=== PATIENT | female | born 1995 | race Caucasian/White ===

== ENCOUNTER 2022-05-21 13:24 | Emergency (ER) | payer OTHER, SELFPAY ==
--- NOTE | 2022-05-21 13:19 | ECG_ITS ---
APPROVED REPORT Exam: Resting ECG HR:106 bpm ECG Measurements Heart Rate 106 AXES VT 157 P 75 QRSd 93 QRS 87 QT 335 T -9 QTc 397 Conclusion SINUS TACHYCARDIA O/w normal ecg ABNORMAL ECG UNCONFIRMED REPORT Electronically signed by : Hermes Chaudhary MD 05/22/2022 20:18:35
[2022-05-21 13:25] VITALS: BP 105/81; PULSE 109; RESP 18; TEMP 36.6; O2SAT 95; BMI 20.1
--- NOTE | 2022-05-21 13:39 | CT_ITS ---
FINAL REPORT TECHNIQUE: Thin section axial CT images were obtained from the lung apices to the upper abdomen. IV contrast was administered. MIP 3-D reformats were obtained. This study was performed with techniques to keep radiation doses as low as reasonably achievable (ALARA). Individualized dose reduction techniques using automated exposure control or adjustment of mA and/or kV according to the patient's size were employed. CLINICAL HISTORY: chest pain, informed to have PE study FINDINGS: The heart size is normal. There is mild mediastinal and hilar adenopathy that is likely reactive. There is no filling defect to suggest PE. There is no aortic dissection. There is no pericardial effusion. There is medial right upper lobe consolidation consistent with pneumonia. A calcified granuloma is seen in the right upper lobe. No pleural effusion. Limited images of the upper abdomen demonstrate mild nonspecific biliary duct dilatation of uncertain etiology. IMPRESSION: No pulmonary embolism or aortic dissection. Right upper lobe pneumonia. Mild adenopathy is likely reactive. Mild nonspecific biliary duct dilatation of uncertain etiology. Reviewed, Interpreted and Dictated by Thang Pak III, MD Transcribed by Edgar Mckeon Authenticated and [facility]
--- NOTE | 2022-05-21 13:41 | HMH.EDGENADL ---
Discharge Plan Disposition Patient Disposition: Home, Self-Care Condition: Good Prescriptions Prescriptions: New benzonatate 100 mg capsule 100 mg PO BID Qty: 30 0RF doxycycline hyclate 100 mg capsule 100 mg PO BID Qty: 20 0RF ketorolac 10 mg tablet 10 mg PO Q8H 4 Days Qty: 12 0RF Referrals Follow up/Referrals: Provider,Referral, MD [Referring] - See instructions Activity Restrictions/Add. Instructions Additional Instructions/Restrictions: Please follow-up with your primary care physician within the next 1 to 2 days. Please take the antibiotic and Tessalon Perles to help with your symptoms. Please drink plenty of water. Clinical Impressions Clinical Impression: Pneumonia Instructions Patient Instructions: DI for Pneumonia -- Adult Print Language Print Language: Vietnamese Discharge ED Provider: Liz Diaz Adult HPI General Chief complaint: Chest Pain Stated complaint: chest pain Time Seen by Provider: 05/21/22 13:30 Mode of Arrival: Ambulatory Source of Information: Patient Limitations: No Limitations History of Present Illness HPI narrative: Miss peralta is a 26 yo female w/ PMH for facial cancer, surgically removed per the patient presenting to [facility] ED for pe rule out. Patent reports she was evaluated at another facility yesterday for chest pain in the setting of cough and congestion since 05/08. Patient was found to have + dimer (.52), patient was given an order for a ct chest however due to inability to gain IV access patient unable to have ct scan. Patient was given outpatient order for scan but was unable to retrieve as the imaging faciilty informed her they did not have her ct order in system. Patient denies LE swelling/pain. No hx of blood clots. No recent trauam chest. Symptoms not exacerbated with food intake. MD complaint: cough and congestion, chest pain Related Data Previous Rx's Medication Instructions Recorded benzonatate 100 mg capsule 100 mg PO BID #30 caps 05/21/22 doxycycline hyclate 100 mg capsule 100 mg PO BID #20 caps 05/21/22 ketorolac 10 mg tablet 10 mg PO Q8H 4 days #12 tabs 05/21/22 Allergies Allergy/AdvReac Type Severity Reaction Status Date / Time SULFA (SULFONAMIDE) Allergy Intermediate HIVES, Uncoded 06/02/17 14:58 ITCHING, TURNS [facility] Disclaimer: The information contained in this section may have been updated after the patient was seen, as this information can be updated by other users. Social History Smoking Status: Unknown if ever smoked alcohol intake: never current occupational status: employed Travel in the last 8 weeks: None ROS Obtained: Yes All systems reviewed & no additional complaints except as documented Physical Exam General General appearance: alert and in no apparent distress Head Head exam: atraumatic and normal inspection Eye Eye exam: Present normal appearance and EOMI ENT ENT exam: Present normal exam and mucous membranes moist Neck Neck exam: Present normal inspection and full ROM Chest Chest inspection: Present normal inspection and symmetric chest wall rise Respiratory Respiratory exam: Present normal lung sounds bilaterally Cardiovascular Cardiovascular exam: Present regular rate and tachycardia Abdominal Exam Abdominal exam: Present soft Extremities Exam Extremities exam: Present normal inspection and full ROM Back Exam Back exam: Present normal inspection and full ROM Neurological Exam Neurological exam: Present alert and oriented X3 Skin Skin exam: Present warm and normal color Medical Decision Making Medical Records Medical records reviewed: Yes I reviewed the patient's medical records. [place] Inquiry Pt receiving controlled substance: No Vital Signs: 05/21/22 13:25 05/21/22 14:01 05/21/22 14:31 Temperature 97.8 F Temperature Source Oral Pulse Rate 107 H 96 H Pulse Rate [Left Radial] 109 H Respiratory
[2022-05-21 13:46] LABS: Chloride 98 mmol/L (98-107); Sodium 136 mmol/L (136-145)
[2022-05-21 13:49] LABS: Alanine Aminotransferase 11 U/L (12-78); Albumin Level 3.8 g/dl (3.5-5.0); Albumin/Globulin Ratio 1.3 (1.1-1.8); Alkaline Phosphatase 101 U/L (38-126); Aspartate Amino Transferase 24 U/L (14-36); Bilirubin,Total 0.3 mg/dl (0.2-1.3); Blood Urea Nitrogen 12 mg/dl (7-17); Calcium 8.9 mg/dl (8.4-10.2); Carbon Dioxide 30 mmol/L (22.0-30.0); Estimated Glomerular Filt Rate 121 ml/min (>60); GFR (African American) 146 ML/MIN (>60); Glucose 81 mg/dl (74-100); Total Protein,Serum 6.8 g/dl (6.3-8.2)
[2022-05-21 13:55] LABS: Anion Gap 10.4 mEq/L (5-15)
[2022-05-21 13:56] LABS: Potassium 2.4 mmoL/L (3.5-5.1)
[2022-05-21 14:01] VITALS: BP 101/78; PULSE 107; O2SAT 99
[2022-05-21 14:11] LABS: Basophils # 0.1 K/mm3 (0-0.2); Basophils % 0.7 % (0.1-2.0); Eosinophils # 0.1 K/mm3 (0.0-0.4); Eosinophils % 1.2 % (0.1-12.0); Hematocrit 37.2 % (37.0-47.0); Hemoglobin 12.6 g/dL (12.2-16.2); Lymphocytes # 1.9 K/mm3 (0.7-4.5); Lymphocytes % 26.6 % (10-50); Mean Corpuscular HGB Conc 33.7 g/dL (31.8-35.4); Mean Corpuscular Hemoglobin 30.1 pg (27.0-31.2); Mean Corpuscular Volume 89.4 fl (81-99); Mean Platelet Volume 8.9 fl (7.4-10.4); Monocytes # 0.5 K/mm3 (0.1-1.0); Monocytes % 6.5 % (1.7-9.3); Neutrophils # 4.6 K/mm3 (1.8-7.8); Platelet Count 222 K/mm3 (142-424); Red Blood Count 4.17 M/mm3 (4.20-5.40); Red Cell Distribution Width 13.7 % (11.5-17.5); White Blood Count 7.1 K/mm3 (4.8-10.8)
[2022-05-21 14:14] LABS: Troponin I < 0.01 ng/ml (0.00-0.034)
[2022-05-21 14:31] VITALS: BP 113/74; PULSE 96; O2SAT 99
--- NOTE | 2022-05-21 14:39 | PC.NURSE ---
called radiology to check on pt status for going for her ct scan.
--- NOTE | 2022-05-21 14:43 | PC.NURSE ---
radiology is waiting on pt test before ct
--- NOTE | 2022-05-21 14:44 | HMH.ITSTN ---
called ER to check on status of preg test and IV
[2022-05-21 15:00] VITALS: BP 117/76; PULSE 104; O2SAT 97
--- NOTE | 2022-05-21 15:20 | PC.NURSE ---
contacted lab for updated time on
--- NOTE | 2022-05-21 15:21 | PC.NURSE ---
MD aware of pt muscle spasms. PT got tylenol and motrin with no relief, md orderd toradol and states if that does not work she can have one dose of morphine. Will continue to monitor
[2022-05-21 15:23] LABS: HCG Qualitative, Serum Negative (Negative)
--- NOTE | 2022-05-21 15:33 | PC.NURSE ---
pt to ct
[2022-05-21 16:55] VITALS: BP 122/80; PULSE 104; RESP 18; TEMP 36.6; O2SAT 97
== END 2022-05-21 16:58 | disposition home or self-care (01) ==
PROVIDERS: Emergency Provider Student in an Organized Health Care Education/Training Program; PCP Family Medicine
DX: J18.9 Pneumonia, unspecified organism (principal)
CPT/HCPCS: 71275; 80053; 84484; 84703; 85025; 93005; 96374; 99284; Q9967

== ENCOUNTER 2022-11-08 17:24 | Emergency (ER) | payer OTHER, SELFPAY ==
[2022-11-08 17:25] VITALS: BP 108/74; PULSE 138; RESP 19; TEMP 37.1; O2SAT 97; BMI 20.1
--- NOTE | 2022-11-08 17:27 | HMH.EDGENADL ---
Discharge Plan Disposition Patient Disposition: Home, Self-Care Prescriptions Prescriptions: New cefdinir 300 mg capsule 300 mg PO BID 10 Days Qty: 20 0RF cyclobenzaprine 5 mg tablet 5 mg PO TID PRN (Reason: muscle spasm) 5 Days Qty: 15 0RF ibuprofen 600 mg tablet 600 mg PO Q8H PRN (Reason: pain) 7 Days Qty: 20 0RF No Action mirtazapine 30 mg tablet 30 mg PO HS Label Comments: TAKE 1 TABLET BY MOUTH EVERY NIGHT lamotrigine 100 mg tablet 100 mg PO DAILY Label Comments: TAKE 1 TABLET BY MOUTH DAILY methylphenidate HCl [Concerta] 36 mg tablet extended release 24hr 36 mg PO DAILY Label Comments: TAKE 1 TABLET BY MOUTH EVERY MORNING Azstarys 26.1 mg- 5.2 mg capsule 1 cap PO DAILY Label Comments: TAKE 1 CAPSULE BY MOUTH DAILY Referrals Follow up/Referrals: Génesis Ennis MD [Primary Care Provider] - See instructions Activity Restrictions/Add. Instructions Additional Instructions/Restrictions: Your evaluation for your back pain today was overall nonspecific. Your urinalysis did potentially show urinary tract infection with your back pain we will treat for pyelonephritis however your urine that you provided was contaminated and may not have been an adequate specimen. I suspect that your urine culture results will not yield any specific results. Nonetheless I will treat you for pyelonephritis with antibiotics. Please return with any fevers that are not being treated adequately at home with Tylenol or ibuprofen and or other concerns. Additionally you do have significant back spasms clinically which may be secondary to the prolonged mopping that you had yesterday and will be treated with Flexeril and ibuprofen. Overall your symptoms are nonspecific but no emergent medical condition was identified tonight please return with any worsening or persistent symptoms. Clinical Impressions Clinical Impression: Back pain, Pyelonephritis, Back muscle spasm Instructions Patient Instructions: DI for Urinary Tract Infection (UTI), DI for Urinary Tract Infection in Children Discharge ED Provider: Jazmine Thurston General Adult HPI General Chief complaint: Urogenital-Female Stated complaint: back pain, diff to urinate Time Seen by Provider: 11/08/22 17:27 History of Present Illness HPI narrative: Patient is a 27-year-old female presenting with back pain. This has been going on since yesterday has been constant but intermittently getting worse and better. She states she has a history of kidney stones but in the past has had nausea and vomiting with her kidney stones is not having any nausea vomiting at this point. She does state that yesterday she spent over an hour mopping doing spring cleaning and that her back was getting tight this may be of been the inciting factor today. Her symptoms are in the midline off the paraspinal aspects of her upper and lower back but primarily on the left she states. She had no hematuria no fevers or chills no dysuria frequency or urgency. She is not take any medicines prior to arrival today. No history of any injection drug use. She states that she has had no urinary or bowel incontinence no saddle anesthesia no lower extremity weakness or paralysis no history of injection drug use fever or cancer. Related Data Home Medications Medication Instructions Recorded Confirmed lamotrigine 100 mg tablet 100 mg PO DAILY Seizure 11/08/22 11/08/22 methylphenidate HCl 36 mg 36 mg PO DAILY ADHD 11/08/22 11/08/22 tablet,extended release 24 hr (Concerta) mirtazapine 30 mg tablet 30 mg PO HS Depression 11/08/22 11/08/22 serdexmethylphenidate 26.1 1 cap PO DAILY ADHD 11/08/22 11/08/22 mg-dexmethylphenidate 5.2 mg capsule (Azstarys) Previous Rx's Medication Instructions Recorded cefdinir 300 mg capsule 300 mg PO BID 10 days #20 caps 11/08/22 cyclobenzaprine 5 mg tablet 5 mg PO TID PRN muscle spasm 5 11/08/22 days #15 tabs ibuprof
--- NOTE | 2022-11-08 17:38 | CT_ITS ---
PROCEDURE INFORMATION: Exam: CT Abdomen And Pelvis Without Contrast Exam date and time: 11/08/2022 6:43 PM Age: 27 years old Clinical indication: Abdominal pain; Flank; Left; Additional info: Left flank pain TECHNIQUE: Imaging protocol: Computed tomography of the abdomen and pelvis without contrast. Total images: 270 Radiation optimization: All CT scans at this facility use at least one of these dose optimization techniques: automated exposure control; mA and/or kV adjustment per patient size (includes targeted exams where dose is matched to clinical indication); or iterative reconstruction. REPORTING DATA: Count of CT and Cardiac NM exams in prior 12 months: This patient has received [address] and 0 known cardiac nuclear medicine studies in the 12 months prior to the current study. COMPARISON: CT ANGIO CHEST PE PROTOCOL 05/21/2022 3:40 PM FINDINGS: Lungs: Lung bases are clear. Heart: Normal heart size. Liver: Normal. No mass. Gallbladder and bile ducts: Heterogeneous gallbladder content likely sludge or noncalcified gallstones. No acute cholecystitis. Stable mild extrahepatic bile ductal dilatation, unchanged from May 21, 2022. Pancreas: Normal. No ductal dilation. Spleen: Normal. No splenomegaly. Adrenal glands: Normal. No mass. Kidneys and ureters: 2-3 mm nonobstructing right intrarenal calculus. Unremarkable left kidney. No hydronephrosis or perinephric fluid. Stomach and bowel: Unremarkable stomach and duodenum. No ileus or bowel obstruction. Small bowel is within normal limits. Moderate colonic stool burden. Mostly collapsed rectosigmoid colon. No acute colonic inflammatory process. Appendix: The appendix is not discretely visualized. No secondary signs of appendicitis. Intraperitoneal space: No ascites. No free air. Vasculature: Abdominal aorta is normal in caliber. Pelvic phleboliths. Lymph nodes: Unremarkable. No enlarged lymph nodes. Urinary bladder: Partially collapsed bladder. Reproductive: Uterus and ovaries are physiologic. No adnexal mass or free pelvic fluid. Bones/joints: No acute osseous abnormality. Thoracolumbar scoliosis. No concerning bone lesions. Soft tissues: Very tiny fat containing umbilical hernia. IMPRESSION: 1. No acute intra-abdominal or pelvic process. Specifically, study does not provide etiology for left flank pain. 2. 2-3 mm nonobstructing right intrarenal calculus. 3. Suspect gallbladder sludge versus noncalcified stones. No acute cholecystitis. 4. Stable mild dilatation of the extrahepatic duct, unchanged from May 21, 2022. 5. Moderate colonic stool burden/constipation.
[2022-11-08 17:39] VITALS: BP 108/74; PULSE 138; O2SAT 96
[2022-11-08 17:59] LABS: Basophils % 0.4 % (0.1-2.0); Eosinophils # 0.1 K/mm3 (0.0-0.4); Eosinophils % 1.9 % (0.1-12.0); Hematocrit 42.7 % (37.0-47.0); Hemoglobin 13.9 g/dL (12.2-16.2); Lymphocytes # 2.5 K/mm3 (0.7-4.5); Lymphocytes % 47.1 % (10-50); Mean Corpuscular HGB Conc 32.7 g/dL (31.8-35.4); Mean Corpuscular Hemoglobin 29.3 pg (27.0-31.2); Mean Corpuscular Volume 89.6 fl (81-99); Mean Platelet Volume 8.6 fl (7.4-10.4); Monocytes # 0.5 K/mm3 (0.1-1.0); Monocytes % 9.8 % (1.7-9.3); Neutrophils # 2.1 K/mm3 (1.8-7.8); Neutrophils % 40.7 % (37.0-80.0); Platelet Count 305 K/mm3 (142-424); Red Blood Count 4.76 M/mm3 (4.20-5.40); Red Cell Distribution Width 15.1 % (11.5-17.5); White Blood Count 5.3 K/mm3 (4.8-10.8)
[2022-11-08 18:00] VITALS: BP 99/78; PULSE 131; O2SAT 96
[2022-11-08 18:00] LABS: Chloride 100 mmol/L (98-107)
[2022-11-08 18:04] LABS: Alanine Aminotransferase 23 U/L (12-78); Albumin/Globulin Ratio 1.3 (1.1-1.8); Alkaline Phosphatase 78 U/L (38-126); Aspartate Amino Transferase 50 U/L (14-36); Bilirubin,Total 0.2 mg/dl (0.2-1.3); Blood Urea Nitrogen 11 mg/dl (7-17); Carbon Dioxide 28 mmol/L (22.0-30.0); Creatinine Clearance Estimated 108 mL/min (50-200); Estimated Glomerular Filt Rate 100 ml/min (>60); GFR (African American) 121 ML/MIN (>60); Globulin 3.1 g/dL (1.3-3.2); Glucose 105 mg/dl (74-100); Total Protein,Serum 7.1 g/dl (6.3-8.2)
--- NOTE | 2022-11-08 18:13 | PC.NURSE ---
Patient okay with IV fluids, but is refusing all other medications at this time. Attending notified.
[2022-11-08 18:14] LABS: Sodium 138 mmol/L (136-145)
--- NOTE | 2022-11-08 18:15 | PC.NURSE ---
aware of potassium
[2022-11-08 18:26] LABS: Microscopic, Urine URINE MICROSCOPIC (MICROSCOPIC)
[2022-11-08 18:34] LABS: Appearance,Urine SL CLOUDY (Clear); Blood, Urine TRACE-I (Negative); Color,Urine YELLOW (Yellow); Glucose,Urine (UA) Negative (Negative); Ketones,Urine 1+ (Negative); Leukocyte Esterase,Urine 1+ (Negative); Nitrate,Urine Negative (Negative); Protein,Urine TRACE (Negative); Urobilinogen,Urine 0.2 EU/dl (0.2)
[2022-11-08 18:37] LABS: Urine Pregnancy, HCG Qual. Negative (Negative)
[2022-11-08 18:40] LABS: Bilirubin,Urine 1+ (Negative)
--- NOTE | 2022-11-08 18:40 | PC.NURSE ---
Leila with [facility] called back. Patient is clear to be discharged back to intermediate and they will complete their intake for patient there. Leila will be calling the intermediate.
[2022-11-08 18:55] LABS: RBC,Urine Occasional #/hpf (0-3)
[2022-11-08 18:56] LABS: Bacteria,Urine 1+ /lpf; Calcium Oxalate Crystals,Urine Trace /lpf
--- NOTE | 2022-11-08 19:04 | PC.NURSE ---
Patient had agreed to taking medications. Medicated per MAR
[2022-11-08 19:46] VITALS: BP 95/70; PULSE 110; O2SAT 96
--- NOTE | 2022-11-08 19:50 | PC.NURSE ---
Rounded on pt. Pt complains of IV burning L. DAVID Chaudhari notified.
[2022-11-08 20:01] VITALS: BP 98/75; PULSE 105; RESP 18; TEMP 36.6; O2SAT 99
== END 2022-11-08 20:05 | disposition home or self-care (01) ==
PROVIDERS: Emergency Provider Student in an Organized Health Care Education/Training Program; PCP Family Medicine
DX: N12 Tubulo-interstitial nephritis, not specified as acute or chronic (principal); M62.830 Muscle spasm of back; F17.200 Nicotine dependence, unspecified, uncomplicated
CPT/HCPCS: 74176; 80053; 81001; 81025; 85025; 87086; 96361; 96374; 96375; 99284; 99285; J2405; J3475

== ENCOUNTER 2023-09-14 16:36 | Outpatient (CLI) | payer OTHER, SELFPAY ==
--- NOTE | 2023-09-14 16:37 | MR_ITS ---
FINAL REPORT CLINICAL HISTORY: jaw pain. STATES BUMPS ALONG MANDIBLE. FINDINGS: Multiplanar MR imaging of the neck was performed without and with contrast. There is no acute bony abnormality. The patient is edentulous. Dedicated TMJ was not performed but TMJ is unremarkable. There are multiple enlarged bilateral internal jugular nodes. Largest on the right at C2-3 level measures 16 mm. Largest on the left at C3 measures 19 mm. Findings are nonspecific, may be reactive or possibly neoplastic. The nasopharynx, oropharynx, hypopharynx, and larynx are unremarkable. IMPRESSION: Multiple enlarged bilateral internal jugular nodes, may be reactive or neoplastic. Reviewed, Interpreted and Dictated by Thang Pak III, MD Transcribed by Emi Figueroa Authenticated and [facility]
[2023-09-14] MEDS: SODIUM CHLORIDE 0.9% 10ML SYR (RAD ONLY) 10 ML IV (17:20)
[2023-09-14] MEDS: GADOTERIDOL INJ 17ML SYRINGE 10 ML IV (17:20)
== END 2023-09-14 23:59 ==
LOC: RAD 16:37
PROVIDERS: PCP Internal Medicine; Visit Provider Internal Medicine
DX: R51.9 Headache, unspecified (principal); G50.1 Atypical facial pain
CPT/HCPCS: 70543; A9576

== ENCOUNTER 2023-09-17 14:57 | Outpatient (CLI) | payer OTHER, SELFPAY ==
[2023-09-17 15:28] LABS: Basophils % 0.9 % (0.1-2.0); Eosinophils % 0.3 % (0.1-12.0); Hematocrit 43.4 % (37.0-47.0); Hemoglobin 13.8 g/dL (12.2-16.2); Lymphocytes % 25.5 % (10-50); Mean Corpuscular HGB Conc 31.8 g/dL (31.8-35.4); Mean Corpuscular Hemoglobin 30.5 pg (27.0-31.2); Mean Corpuscular Volume 96.1 fl (81-99); Mean Platelet Volume 9.4 fl (7.4-10.4); Monocytes # 0.2 K/mm3 (0.1-1.0); Monocytes % 5.1 % (1.7-9.3); Neutrophils # 2.6 K/mm3 (1.8-7.8); Neutrophils % 68.2 % (37.0-80.0); Platelet Count 165 K/mm3 (142-424); Red Blood Count 4.52 M/mm3 (4.20-5.40); Red Cell Distribution Width 14.1 % (11.5-17.5); White Blood Count 3.8 K/mm3 (4.8-10.8)
[2023-09-17 16:00] LABS: Alanine Aminotransferase 14 U/L (12-78); Albumin Level 3.6 g/dl (3.5-5.0); Albumin/Globulin Ratio 1.6 (1.1-1.8); Alkaline Phosphatase 57 U/L (38-126); Anion Gap 7.6 mEq/L (5-15); Aspartate Amino Transferase 26 U/L (14-36); Bilirubin,Total 0.3 mg/dl (0.2-1.3); Blood Urea Nitrogen 10 mg/dl (7-17); Calcium 9.2 mg/dl (8.4-10.2); Carbon Dioxide 28 mmol/L (22.0-30.0); Chloride 108 mmol/L (98-107); Estimated Glomerular Filt Rate 85 ml/min (>60); GFR (African American) 103 ML/MIN (>60); Globulin 2.3 g/dL (1.3-3.2); Glucose 94 mg/dl (74-100); Lactate Dehydrogenase 171 U/L (313-618); Potassium 3.6 mmoL/L (3.5-5.1); Sodium 140 mmol/L (136-145); Total Protein,Serum 5.9 g/dl (6.3-8.2)
== END 2023-09-17 23:59 ==
LOC: LAB 14:58
PROVIDERS: PCP Internal Medicine; Visit Provider Internal Medicine Medical Oncology
DX: R59.9 Enlarged lymph nodes, unspecified (principal)
CPT/HCPCS: 36415; 80053; 83615; 84550; 85025

== ENCOUNTER 2023-12-01 14:58 | Emergency (ER) | payer OTHER, SELFPAY ==
--- NOTE | 2023-12-01 15:03 | ED_ITS ---
<Statement entered by Jazmine Thurston MD - 12/01/23 22:51> I was consulted by the JEZ, and we discussed the complexity of the problems being addressed. I approved the treatment and management plan for this patient's care in the emergency department, thus performing a substantive portion of the medical decision making. Jazmine Thurston MD, RUSTY, FACEP Discharge Plan Disposition Patient Disposition: Home, Self-Care Condition: Good Prescriptions Prescriptions: New cefdinir 300 mg capsule 300 mg PO BID 10 Days Qty: 20 0RF No Action baclofen 5 mg tablet 5 mg PO TID PRN (Reason: muscle spasm) 30 Days Qty: 90 3RF lamotrigine 200 mg tablet PO Patient Comments: TAKE 1 TABLET BY MOUTH DAILY amoxicillin-pot clavulanate [Augmentin] 500-125 mg tablet 1 tab PO BID 14 Days Qty: 28 0RF methylphenidate HCl 40 mg cap,ER sprinkle,biphasic 40-60 PO methadone 5 mg tablet 7.5 mg PO TID 30 Days Qty: 135 0RF diazepam 5 mg tablet 5 mg PO BID PRN (Reason: anxiety) Qty: 60 1RF prazosin 2 mg capsule 4 mg PO HS Qty: 60 2RF eszopiclone 2 mg tablet 2 mg PO Patient Comments: TAKE 1 TABLET EVERY NIGHT AT BEDTIME IMMEDIATELY BEFORE BEDTIME temazepam 15 mg capsule 15 mg PO HS Qty: 30 2RF ondansetron 8 mg tablet,disintegrating 8 mg PO Q8H PRN (Reason: nausea and vomiting) Qty: 60 2RF oxycodone 5 mg tablet 5 mg PO Q6H PRN (Reason: oral pain) 30 Days Qty: 60 0RF Referrals Follow up/Referrals: Pio Doan DO [Primary Care Provider] - See instructions Activity Restrictions/Add. Instructions Additional Instructions/Restrictions: Please take all antibiotics. Follow-up with your PCP for recheck. Return to ER for any worsening signs or symptoms. You may take Tylenol alternating with Motrin every 4 hours as needed for constitutional symptoms like fever and pain. Clinical Impressions Clinical Impression: Pyelonephritis Instructions Patient Instructions: DI for Kidney Infection, DI for Constipation Discharge ED Provider: Jazmine Thurston General Adult HPI General Chief complaint: PAIN Stated complaint: Right side stabbing pain Time Seen by Provider: 12/01/23 15:03 History of Present Illness HPI narrative: Patient presents for evaluation of right-sided flank and abdominal pain. Patient states that she began having right flank pain radiating down her right abdomen to her right groin yesterday. She called her PCP however he was not in the office so patient waited it out. However she has not improved and called her PCP today and he sent her to the emergency department for evaluation. Patient states that she has a dysuria and burning when she pees but also has a history of vaginal infections as well as kidney stones. She denies fever chills hemoptysis hematochezia melena nausea vomiting diarrhea. Related Data Home Medications Medication Instructions Recorded Confirmed eszopiclone 2 mg tablet 2 mg PO 07/16/23 11/18/23 lamotrigine 200 mg tablet mg PO 10/21/23 11/18/23 methylphenidate HCl 40 mg mg PO 11/18/23 11/18/23 capsule,extended release (40-60) sprinkle Previous Rx's Medication Instructions Recorded baclofen 5 mg tablet 5 mg PO TID PRN muscle spasm 30 06/17/23 days #90 tabs ondansetron 8 mg disintegrating 8 mg PO Q8H PRN nausea and 09/23/23 tablet vomiting #60 tabs temazepam 15 mg capsule 15 mg PO HS #30 caps 09/23/23 amoxicillin 500 mg-potassium 1 tab PO BID 14 days #28 tabs 10/22/23 clavulanate 125 mg tablet (Augmentin) diazepam 5 mg tablet 5 mg PO BID PRN anxiety #60 tabs 11/18/23 methadone 5 mg tablet 7.5 mg (1.5 x 5 mg) PO TID pain 30 11/18/23 days #135 tabs prazosin 2 mg capsule 4 mg (2 x 2 mg) PO HS #60 caps 11/19/23 oxycodone 5 mg tablet 5 mg PO Q6H PRN oral pain 30 days 11/30/23 #60 tabs cefdinir 300 mg capsule 300 mg PO BID 10 days #20 caps 12/01/23 Allergies Allergy/AdvReac Type Severity Reaction Status Date / Time Sulfa (Sulfonamide Allergy Mild Verified 11/18/23 15:33 Antibiotics) [facility] Disclaimer: The information contained in this section may have been updated after the patient was seen, as this information can be updated by other users. Medical History Depression Arthritis of temporomandibular joint ADHD Anxiety Social History Smoking Status: Current every day smoker alcohol intake: never substance use type: denies use current occupational status: unemployed Travel in the last 8 weeks: None ROS Obtained: Yes Systems reviewed as appropriate & no additional complaints except as documented Physical Exam General General appearance: alert and in no apparent distress Respiratory Respiratory exam: Present normal lung sounds bilaterally Cardiovascular Cardiovascular exam: Present regular rate and normal rhythm Abdominal Exam Abdominal exam: Present soft, tenderness (Tender to palpation in the right upper quadrant and right lower quadrant with no rebound tenderness no Baxter sign no tenderness at McBurney's point focally) and normal bowel sounds; Absent guarding, rebound or rigidity Extremities Exam Extremities exam: Present normal inspection and full ROM Back Exam Back exam: Present normal inspection, full ROM and CVA tenderness (R); Absent CVA tenderness (L) Neurological Exam Neurological exam: Present alert, oriented X3 and CN II-XII intact Psychiatric Psychiatric exam: Present normal affect and normal mood Skin Skin exam: Present warm, dry and normal color Medical Decision Making Medical Records Medical records reviewed: Yes I reviewed the patient's medical records. Nahum Inquiry Pt receiving controlled substance: No Vital Signs: 12/01/23 15:13 Temperature 98.2 F Temperature Source Oral Pulse Rate [Left Radial] 97 H Respiratory Rate 20 Blood Pressure [Right Arm] 103/76 L Blood Pressure Mean [Right Arm] 85 02 Sat by Pulse Oximetry 97 Oxygen Delivery Method Room Air Lab Data Lab results reviewed: Yes I reviewed the patient's lab results. Lab Results 12/01/23 15:08: Urine HCG, Qual Negative 12/01/23 15:13: Urine Color Yellow, Urine Appearance Cloudy, Urine pH 6.5, Ur Specific Becker 1.025, Urine Protein 1+, Urine Glucose (UA) Negative, Urine Ketones Negative, Urine Blood 2+, Urine Nitrate Positive, Urine Bilirubin Negative, Urine Urobilinogen 4.0, Ur Leukocyte Esterase 2+ A, Urine RBC 5-10, Urine WBC 10-20, Ur Squamous Epith Cells 3-5, Urine Bacteria 3+ 12/01/23 15:19: WBC 5.8, RBC 4.19 L, Hgb 12.8, Hct 38.3, MCV 91.4, MCH 30.5, MCHC 33.3, RDW 15.0, Plt Count 230, MPV 9.1, Neut % (Auto) 58.8, Lymph % (Auto) 29.9, [place] % (Auto) 8.6, Eos % (Auto) 1.9, Baso % (Auto) 0.7, Neut # (Auto) 3.4, Lymph # (Auto) 1.7, [place] # (Auto) 0.5, Eos # (Auto) 0.1, Baso # (Auto) 0.0, Sodium 138, Potassium 3.3 L, Chloride 101, Carbon Dioxide 31 H, Anion Gap 9.3, BUN 8, Creatinine 0.70, Estimated Creat Clear 94, Estimated GFR 100, Est GFR ( Amer) 121, Glucose 85, Calcium 9.3, Magnesium 1.7, Total Bilirubin 0.4, AST 23, ALT 13, Alkaline Phosphatase 64, Total Protein 6.7, Albumin 3.7, Globulin 3.0, Albumin/Globulin Ratio 1.2, Lipase 25 12/01/23 15:19 12/01/23 15:19 Orders (Tests/Meds): ED MEDICATIONS Discontinued Medications Generic Name Dose Route Start Last Admin Trade Name Prabhakarq PRN Reason Stop Dose Admin Acetaminophen 1,000 mg 12/01/23 15:06 12/01/23 15:24 Acetaminophen 1,000mg/100ml Vial IV 12/01/23 15:07 1,000 mg ONCE ONE Administration Cefdinir 300 mg 12/01/23 15:40 12/01/23 15:50 Cefdinir 300mg Capsule PO 12/01/23 15:41 300 mg ONCE ONE Administration Lactated Ringer's 1,000 mls @ 999 mls/hr 12/01/23 15:06 12/01/23 15:25 Lactated Ringer's 1000 Ml Bag IV 12/01/23 16:06 999 mls/hr .Q1H1M ONE Administration Iopamidol 75 ml 12/01/23 15:38 12/01/23 15:39 Iopamidol-370 (76%);100ml Bottle IV 12/01/23 15:39 75 ml ONCE ONE Administration Ketorolac Tromethamine 15 mg 12/01/23 15:06 12/01/23 15:24 Ketorolac 30mg/Ml Vial IV 12/01/23 15:07 15 mg ONCE ONE Administration Sodium Chloride 10 ml 12/01/23 15:38 12/01/23 15:39 Sodium Chloride 0.9% 10ml Syr (Rad Only) IV 12/01/23 15:39 10 ml ONCE ONE Administration ORDERS Category Date Time Status CT abdomen pelvis w con Stat Cat Scan 12/01/23 15:13 Taken CBC w/Auto Diff [Complete Blood Count Auto Diff] Stat Lab 12/01/23 15:19 Completed CMP [Comprehensive Metabolic Panel] Stat Lab 12/01/23 15:19 Completed Lactic Acid Stat Lab 12/01/23 15:06 Ordered Lipase Stat Lab 12/01/23 15:19 Completed Magnesium Stat Lab 12/01/23 15:19 Completed UA [Urinalysis and Microscopic] Stat Lab 12/01/23 15:13 Completed Urine , HCG Qual. Stat Lab 12/01/23 15:08 Completed Urine Culture Stat Micro 12/01/23 15:13 Received Medical Decision Narrative: In summary patient is a 28-year-old female who presents to the emergency department for evaluation of right-sided abdominal and flank pain. Patient is hemodynamically stable with a blood pressure 103/76 heart rate of 97 and O2 sat of 97 breathing 20 times a minute upon arrival, with a temperature of 98.2. Physical exam is remarkable for CVA tenderness to percussion, right upper and lower abdominal quadrant tenderness without focal tenderness and no peritoneal signs. Differential diagnosis includes complicated UTI, pyelonephritis, ureterolithiasis, acute cholecystitis, and less likely acute appendicitis. Initial workup will be conducted with hematologic labs CT scan abdomen pelvis urinalysis and urine test. Initial interventions include crystalloid bolus Toradol Tylenol. Initial workup reviewed by me and patient's hematologic labs are nonactionable however patient does have nitrites leukocytes and 3+ bacteria in her urinalysis. My informal interpretation of her CT scan abdomen pelvis reveals patient has significant amount stool burden especially in the ascending colon but otherwise no acute processes.. Upon repeat evaluation moderate improvement in her symptoms after initial intervention. Given this patient is appropriate for discharge with a diagnosis of pyelonephritis with a prescription of Omnicef with first dose given here. Patient also given instructions on disimpaction with MiraLAX and Gatorade. Critical Care Critical Care Time Critical Care Time: No
[2023-12-01 15:13] VITALS: BP 103/76; PULSE 97; RESP 20; TEMP 36.8; O2SAT 97; BMI 17.7
--- NOTE | 2023-12-01 15:13 | CT_ITS ---
FINAL REPORT TECHNIQUE: Oral and IV contrast enhanced exam. Reconstructed images were obtained and reviewed. This study was performed with techniques to keep radiation doses as low as reasonably achievable (ALARA). Individualized dose reduction techniques using automated exposure control or adjustment of mA and/or kV according to the patient's size were employed. CLINICAL HISTORY: Right sided abdominal pain COMPARISON: 11/08/2022 FINDINGS: Abdomen: No acute density is seen within the lung bases. There is a tiny presumed cyst in the upper pole of the right kidney. The gallbladder is contracted. There is mild extrahepatic biliary ductal dilatation measuring 10 mm, similar to prior. 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 Solid abdominal organs are otherwise unremarkable. No bowel obstruction is present. There is no free air. No fluid collection is seen. There is no adenopathy. Pelvis: The appendix is not identified. There is fecal impaction in the right colon. The bladder is decompressed. No bowel wall thickening is present. There is no free fluid. No pelvic mass is seen. IMPRESSION: No obstruction or obvious inflammatory change. Fecal impaction in the right colon. Chronic extrahepatic biliary ductal dilatation. 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 Reviewed, Interpreted and Dictated by Naomi Lerner MD Transcribed by Emi Figueroa Authenticated and [facility]
[2023-12-01 15:15] LABS: Microscopic, Urine URINE MICROSCOPIC (MICROSCOPIC)
[2023-12-01 15:17] LABS: Appearance,Urine CLOUDY (Clear); Blood, Urine 2+ (Negative); Color,Urine YELLOW (Yellow); Glucose,Urine (UA) Negative (Negative); Ketones,Urine Negative (Negative); Leukocyte Esterase,Urine 2+ (Negative); Nitrate,Urine POSITIVE (Negative); PH,Urine 6.5 (5.0-8.5); Protein,Urine 1+ (Negative); Specific Gravity, Urine 1.025 (1.005-1.030)
[2023-12-01 15:21] LABS: Urine Pregnancy, HCG Qual. Negative (Negative)
[2023-12-01] MEDS: KETOROLAC 30MG/ML VIAL 15 MG IV (15:24)
[2023-12-01] MEDS: ACETAMINOPHEN 1,000MG/100ML VIAL 1000 MG IV (15:24)
[2023-12-01] MEDS: LACTATED RINGERS 1000ML 1,000 ML 999 ML IV (15:25)
[2023-12-01 15:32] LABS: Basophils % 0.7 % (0.1-2.0); Eosinophils # 0.1 K/mm3 (0.0-0.4); Eosinophils % 1.9 % (0.1-12.0); Hematocrit 38.3 % (37.0-47.0); Hemoglobin 12.8 g/dL (12.2-16.2); Lymphocytes # 1.7 K/mm3 (0.7-4.5); Lymphocytes % 29.9 % (10-50); Mean Corpuscular HGB Conc 33.3 g/dL (31.8-35.4); Mean Corpuscular Hemoglobin 30.5 pg (27.0-31.2); Mean Corpuscular Volume 91.4 fl (81-99); Mean Platelet Volume 9.1 fl (7.4-10.4); Monocytes # 0.5 K/mm3 (0.1-1.0); Monocytes % 8.6 % (1.7-9.3); Neutrophils # 3.4 K/mm3 (1.8-7.8); Neutrophils % 58.8 % (37.0-80.0); Platelet Count 230 K/mm3 (142-424); Red Blood Count 4.19 M/mm3 (4.20-5.40); White Blood Count 5.8 K/mm3 (4.8-10.8)
[2023-12-01 15:35] LABS: Bilirubin,Urine Negative (Negative)
[2023-12-01 15:36] LABS: Bacteria,Urine 3+ /lpf
[2023-12-01 15:37] LABS: Chloride 101 mmol/L (98-107); Potassium 3.3 mmoL/L (3.5-5.1); Sodium 138 mmol/L (136-145)
[2023-12-01] MEDS: IOPAMIDOL-370 (76%);100ML BOTTLE 75 ML IV (15:39)
[2023-12-01] MEDS: SODIUM CHLORIDE 0.9% 10ML SYR (RAD ONLY) 10 ML IV (15:39)
[2023-12-01 15:40] LABS: Alanine Aminotransferase 13 U/L (12-78); Albumin Level 3.7 g/dl (3.5-5.0); Albumin/Globulin Ratio 1.2 (1.1-1.8); Alkaline Phosphatase 64 U/L (38-126); Anion Gap 9.3 mEq/L (5-15); Aspartate Amino Transferase 23 U/L (14-36); Bilirubin,Total 0.4 mg/dl (0.2-1.3); Blood Urea Nitrogen 8 mg/dl (7-17); Calcium 9.3 mg/dl (8.4-10.2); Carbon Dioxide 31 mmol/L (22.0-30.0); Creatinine Clearance Estimated 94 mL/min (50-200); Estimated Glomerular Filt Rate 100 ml/min (>60); GFR (African American) 121 ML/MIN (>60); Glucose 85 mg/dl (74-100); Lipase 25 U/L (23-300); Magnesium 1.7 mg/dl (1.6-2.3); Total Protein,Serum 6.7 g/dl (6.3-8.2)
[2023-12-01] MEDS: CEFDINIR 300MG CAPSULE 300 MG PO (15:50)
[2023-12-01 16:45] VITALS: BP 110/78; PULSE 85; RESP 17; TEMP 36.8; O2SAT 99
--- NOTE | 2023-12-04 15:14 | PC.NURSE ---
DISCUSSED URINE CULTURE WITH DR UGALDE, NO NEW ORDERS
== END 2023-12-01 16:46 | disposition home or self-care (01) ==
PROVIDERS: Physician Assistant; Emergency Provider Student in an Organized Health Care Education/Training Program; PCP Internal Medicine
DX: N10 Acute pyelonephritis (principal); B96.89 Other specified bacterial agents as the cause of diseases classified elsewhere; R10.11 Right upper quadrant pain; R10.31 Right lower quadrant pain; M54.59 Other low back pain; R30.0 Dysuria; E87.6 Hypokalemia; F17.210 Nicotine dependence, cigarettes, uncomplicated; K56.41 Fecal impaction
CPT/HCPCS: 74177; 80053; 81001; 81025; 83690; 83735; 85025; 87086; 87088; 87186; 96361; 96374; 96375; 99285; J0131; J1885; J7120; Q9967

== ENCOUNTER 2023-12-08 18:00 | Outpatient (CLI) | payer OTHER, SELFPAY | END 2023-12-08 23:59 | disposition home or self-care (01) | LOC: LAB.DROPOF 12-09 09:05 | PROVIDERS: PCP Internal Medicine; Visit Provider Internal Medicine | DX: N12 Tubulo-interstitial nephritis, not specified as acute or chronic (principal) | CPT/HCPCS: 87086; 87088; 87186 ==

== ENCOUNTER 2024-05-03 21:45 | Outpatient (CLI) | payer OTHER, SELFPAY | END 2024-05-03 23:59 | disposition home or self-care (01) | LOC: LAB 21:46 | PROVIDERS: PCP Internal Medicine; Visit Provider Internal Medicine | DX: R39.9 Unspecified symptoms and signs involving the genitourinary system (principal) | CPT/HCPCS: 87086 ==

== ENCOUNTER 2024-07-22 16:55 | Emergency (ER) | payer OTHER, SELFPAY ==
--- NOTE | 2024-07-22 17:19 | XR_ITS ---
PROCEDURE INFORMATION: Exam: XR Left Ankle Exam date and time: 07/22/2024 5:16 PM Age: 29 years old Clinical indication: Pain; Ankle; Left; Additional info: Rolled ankle TECHNIQUE: Imaging protocol: Radiologic exam of the left ankle. Views: 3 or more views. COMPARISON: No relevant prior studies available. FINDINGS: Bones/joints: Multiple views were obtained. The osseous structures appear intact with no evidence of acute fracture, dislocation, or malalignment. Joint spaces are preserved. No abnormal bone density or destructive lesions are noted. Soft tissues: Soft tissue swelling is observed, and further clinical correlation is advised. IMPRESSION: At the time of imaging, the skeletal radiograph demonstrates no acute osseous abnormalities but does show soft tissue swelling.
[2024-07-22 17:54] VITALS: BP 104/69; PULSE 92; RESP 16; TEMP 36.6; O2SAT 97; BMI 18.8
--- NOTE | 2024-07-22 17:59 | EXP.UTC ---
Discharge Plan Disposition Patient Disposition: Home, Self-Care Condition: Good Prescriptions Prescriptions: No Action lamotrigine 200 mg tablet PO Patient Comments: TAKE 1 TABLET BY MOUTH DAILY amoxicillin-pot clavulanate [Augmentin] 500-125 mg tablet 1 tab PO BID 14 Days Qty: 28 0RF prednisone 10 mg tablets,dose pack See Rx Instructions PO PER PKG DIR Qty: 21 0RF Rx Instructions: PO PER PKG DIR diazepam 5 mg tablet 5 mg PO BID PRN (Reason: anxiety) Qty: 60 1RF ondansetron 8 mg tablet,disintegrating 8 mg PO Q8H PRN (Reason: nausea and vomiting) Qty: 60 2RF temazepam 30 mg capsule 30 mg PO HS PRN (Reason: sleep) Qty: 30 1RF Rx Instructions: Do not take with zolpidem/ambien methadone 10 mg tablet 10 mg PO TID Qty: 90 0RF methadone 10 mg tablet 10 mg PO TID 30 Days Qty: 90 0RF hydrocodone-acetaminophen 10-325 mg tablet 1 tab PO BID PRN (Reason: pain) 30 Days Qty: 60 0RF Referrals Follow up/Referrals: Josemanuel Stark DO [Staff Physician] - See instructions Pio Doan DO [Primary Care Provider] - See instructions Activity Restrictions/Add. Instructions Additional Instructions/Restrictions: Rest the extremity, Elevate the extremity as tolerated while you are resting. Take ibuprofen or tylenol for pain. Follow up with Dr. Stark (orthopedics) for your ankle and knee pain. I put in a referral but you need to call his office and schedule an appointment. Follow up with your regular doctor. GO TO THE ER FOR ANY WORSENING SYMPTOMS Clinical Impressions Clinical Impression: Left sided sciatica, Left ankle sprain, Left knee pain Instructions Patient Instructions: Sciatica, DI for Ankle Sprain, DI for Knee Pain Print Language Print Language: Kyrgyz Discharge ED Provider: Cedric Echevarria [facility] General Stated complaint: LT leg numbness, painful Mode of Arrival: Ambulatory Source of Information: Patient Limitations: No Limitations Time Seen by Provider: 07/22/24 17:59 Description of Symptoms (Recalled from Triage Doc. by RN): Reports falling yesterday and now she is having hip and calf muscle pain. HEENT Symptoms (Recalled from RN notes): No Resp Symptoms (Recalled from RN notes): No Skin Symptoms (Recalled from RN notes): No MS Symptoms (Recalled from RN notes): Yes Functional Status (Recalled from RN notes): wnl Related Data Home Medications ?Medication ?Instructions ?Recorded ?Confirmed lamotrigine 200 mg tablet mg PO 10/21/23 05/03/24 Previous Rx's ?Medication ?Instructions ?Recorded ondansetron 8 mg disintegrating 8 mg PO Q8H PRN nausea and 09/23/23 tablet vomiting #60 tabs amoxicillin 500 mg-potassium 1 tab PO BID 14 days #28 tabs 05/02/24 clavulanate 125 mg tablet (Augmentin) diazepam 5 mg tablet 5 mg PO BID PRN anxiety #60 tabs 05/02/24 prednisone 10 mg tablets in a dose See Rx Instructions PO PER PKG DIR 05/02/24 pack #21 tabs temazepam 30 mg capsule 30 mg PO HS PRN sleep #30 caps 06/13/24 methadone 10 mg tablet 10 mg PO TID severe facial pain 06/20/24 #90 tabs methadone 10 mg tablet 10 mg PO TID 30 days #90 tabs 07/11/24 hydrocodone 10 mg-acetaminophen 1 tab PO BID PRN pain 30 days #60 07/18/24 325 mg tablet tabs Allergies Allergy/AdvReac Type Severity Reaction Status Date / Time Sulfa (Sulfonamide Allergy Mild Verified 05/03/24 09:11 Antibiotics) Worker's Comp Is this a Worker's Comp case?: No [facility] Disclaimer: The information contained in this section may have been updated after the patient was seen, as this information can be updated by other users. Medical History Depression Arthritis of temporomandibular joint ADHD Anxiety Social History Smoking Status: Current every day smoker alcohol intake: never substance use type: denies use current occupational status: unemployed Travel in the last 8 weeks: None Have you lived/traveled outside [place] in past 30 days?: No Contact w/someone who lives/traveled outside [place] past 30 days?: No Exposure to someone with infectious disease in past 14 days?: No Do you have a fever (greater than 100.4 F or 38 C)?: No Have you tested positive for COVID-19: No Exposed to someone with COVID-19 in past 14 days?: No Do you have a sore throat?: No Do you have a cough?: No Do you have any weakness?: No Do you have any diarrhea?: No Are you experiencing any unusual bleeding?: No Do you have any muscle aches/pain?: No Do you have any abdominal pain?: No Are you experiencing loss of taste or smell?: No ROS Obtained: Yes All systems reviewed & no additional complaints except as documented Constitutional Constitutional: Denies chills and Denies fever(s) Eyes Eyes: Denies eye discharge ENT Ears, Nose, Mouth, and Throat: Denies dizziness, Denies otalgia and Denies sore throat Cardiovascular Cardiovascular: Denies chest pain Respiratory Respiratory: Denies shortness of breath, Denies chest congestion, Denies cough, Denies stridor and Denies wheezing Gastrointestinal Gastrointestingal: Denies nausea or vomiting Musculoskeletal Musculoskeletal: Reports system reviewed and no additional complaints, except as documented and Denies arthralgias Integumentary/Breasts Skin/Breast: Denies rash Neurologic Neurologic: Denies dizziness and Denies paresthesias Allergic/Immunologic Allergic/Immunologic: Denies wheezing Physical Exam General General appearance: alert and in no apparent distress Head Head exam: atraumatic, normocephalic and normal inspection Eye Eye exam: Present normal appearance, PERRL and EOMI ENT ENT exam: Present normal exam, normal oropharynx, mucous membranes moist, TM's normal bilaterally and normal external ear exam Neck Neck exam: Present normal inspection, full ROM and trachea midline; Absent meningismus or lymphadenopathy Chest Chest inspection: Present normal inspection and symmetric chest wall rise; Absent tenderness Respiratory Respiratory exam: Present normal lung sounds bilaterally; Absent respiratory distress Cardiovascular Cardiovascular exam: Present regular rate and normal rhythm; Absent JVD Abdominal Exam Abdominal exam: Present soft and normal bowel sounds; Absent distention, tenderness or guarding Extremities Exam Extremities exam: Present normal inspection, full ROM and normal capillary refill; Absent calf tenderness Back Exam Back exam: Present normal inspection; Absent tenderness Neurological Exam Neurological exam: Present alert and oriented X3 Psychiatric Psychiatric exam: Present normal affect and normal mood Skin Skin exam: Present warm, dry, intact and normal color Lymphatic Lymphatic Findings: no adenopathy Medical Decision Making Medical Records Medical records reviewed: No I reviewed the patient's medical records. Screening: Per USPSTF and CDC recommendations, given the prevalence of disease in our region, it is our hospital?s policy to screen for HIV and viral Hepatitis for all patients aged 18 and over and those with ongoing risk factors. Nahum Inquiry Pt receiving controlled substance: No Vital Signs: 07/22/24 17:54 Temperature 97.9 F Temperature Source Oral Pulse Rate [Radial] 92 H Respiratory Rate 16 Blood Pressure [Right Arm] 104/69 L Blood Pressure Mean [Right Arm] 80 Blood Pressure Source [Right Arm] Automatic Cuff Blood Pressure Position [Right Arm] Sitting 02 Sat by Pulse Oximetry 97 Oxygen Delivery Method Room Air Lab Data Lab results reviewed: Yes I reviewed the patient's lab results. Orders (Tests/Meds): ORDERS Category Date Time Status XR ankle LT min 3V Stat Exams 07/22/24 17:19 Completed
--- NOTE | 2024-07-22 18:29 | XR_ITS ---
PROCEDURE INFORMATION: Exam: XR Left Hip Exam date and time: 07/22/2024 7:28 PM Age: 29 years old Clinical indication: Injury or trauma; Fall; Blunt trauma (contusions or hematomas); Left; Hip; Additional info: Fall, left hip pain TECHNIQUE: Imaging protocol: Radiologic exam of the left hip. Views: 2 or 3 views hip with pelvis when performed. Total images: 3 COMPARISON: CT ABDOMEN PELVIS W CON 12/01/2023 3:35 PM FINDINGS: Bones/joints: No acute fracture or joint dislocation. No concerning bone lesions or calcifications. Unremarkable joint spaces. Pelvic ring is maintained. No widening of the pubic symphysis. Soft tissues: Unremarkable soft tissues. Vasculature: Pelvic phleboliths. IMPRESSION: Negative left hip and pelvis.
--- NOTE | 2024-07-22 18:29 | XR_ITS ---
PROCEDURE INFORMATION: Exam: XR Left Knee Exam date and time: 07/22/2024 7:30 PM Age: 29 years old Clinical indication: Injury or trauma; Fall; Blunt trauma; Knee; Left; Additional info: Fall, left knee pain TECHNIQUE: Imaging protocol: Radiologic exam of the left knee. Views: 3 views. Total images: 3 COMPARISON: CR XR ANKLE LT MIN 3V 07/22/2024 5:16 PM FINDINGS: Bones/joints: No acute fracture, joint dislocation, or joint effusion. No concerning bone lesions or calcifications. Unremarkable joint spaces. Soft tissues: Unremarkable soft tissues. IMPRESSION: Negative left knee.
[2024-07-22 20:34] VITALS: BP 104/69; PULSE 92; RESP 18; TEMP 36.7; O2SAT 97
== END 2024-07-22 20:35 | disposition home or self-care (01) ==
PROVIDERS: Emergency Provider Nurse Practitioner Family; PCP Internal Medicine
DX: M54.32 Sciatica, left side (principal); S93.402A Sprain of unspecified ligament of left ankle, initial encounter; M25.562 Pain in left knee
CPT/HCPCS: 73502; 73562; 73610; 99212; G0381